=== PATIENT | male | born 1970 | race Caucasian/White ===

== ENCOUNTER → 2021-01-28 00:37 | Outpatient (CLI) | payer BC, SELFPAY ==
[2021-01-28 21:20] LABS: SARS-CoV-2 RNA PCR Negative
== END ==
PROVIDERS: PCP Family Medicine; Visit Provider Internal Medicine Gastroenterology
DX: Z01.812 Encounter for preprocedural laboratory examination (principal); Z20.822 Contact with and (suspected) exposure to COVID-19
CPT/HCPCS: C9803; U0003; U0005

== ENCOUNTER 2021-01-31 01:22 | Day surgery (SDC) | payer BC, SELFPAY ==
[2021-01-12 13:02] VITALS: BMI 24.1
[2021-01-31 07:42] VITALS: BP 147/91; PULSE 70; RESP 18; TEMP 36.6; O2SAT 100; BMI 24.3
[2021-01-31] MEDS: LACTATED RINGERS 1,000 ML 150 ML IV CONT (07:51)
--- NOTE | 2021-01-31 08:00 | WPDGICN ---
Assessment and Plan Assessment and plan (1) Encounter for screening for malignant neoplasm of colon: Code(s): Z12.11 - Encounter for screening for malignant neoplasm of colon Status: Acute Assessment and Plan: Patient presents for screening colonoscopy reports his father had a colon polyp in the past. Further recommendations on follow-up will be given after endoscopy. GI Consult Note Consult date/time: 01/31/21 08:00 HPI: Warren Draper is a 50 year old male presents for screening colonoscopy. Patient reports that his current weight appetite bowel movements are normal. Patient denies abdominal pain. He has had no bleeding. Family history is significant his father had colon polyps. Review of Systems Review of Systems: All systems reviewed & are unremarkable except as noted in HPI and below PMFSH Past Medical History Medical History (Updated 08/19/20 @ 17:00 by Zoraida Byrd NP) Family history of malignant neoplasm of prostate (03/04/19) Posterior pain of left hip RLS (restless legs syndrome) Family History Family History Other Family history of Parkinson's disease Family history of multiple sclerosis Social History Social History (Updated 09/17/19 @ 15:49 by Kayleigh Hickey CMA) Years smoked: 1 Smoking status: Former smoker Tobacco type: cigarettes Second hand tobacco smoke exposure: No Smoking end date: 07/22/86 Alcohol intake: never Alcohol use details: SINCE 5 YEARS AGO. Substance use: never Substance use type: does not use Gender identity (if verbalized by the patient): Male Spiritual care concerns: No Agree to blood products: Yes Meds Home Medications and Allergies Home Medications Medication Instructions Recorded Confirmed Type pramipexole 0.5 mg tablet See Rx Instructions .ROUTE 01/18/21 Rx .COMPLEX #90 tablet tramadol 50 mg tablet 50 mg PO Q8H PRN #90 tablet 01/18/21 Rx Allergies Allergy/AdvReac Type Severity Reaction Status Date / Time No Known Drug Allergies Allergy Unknown Verified 01/31/21 07:41 NKDA, NKFA Allergy Unknown UNKNOWN Uncoded 01/31/21 07:41 Vital Signs Vital Signs - 24 hr 01/31/21 07:42 Temperature 97.8 F Pulse Rate 70 Respiratory Rate 18 Blood Pressure 147/91 H Pulse Oximetry 100 Exam Narrative: Exam Narrative: physical exam reveals patient be alert. Vital signs stable. HEENT exam is unremarkable. Patient is anicteric. Lungs are clear to auscultation and percussion. Heart is without murmur or extra sounds. Abdominal exam bowel sounds are present soft nontender with no organomegaly. Digital external rectal exam is normal.
--- NOTE | 2021-01-31 08:12 | WPDANESEPPF ---
Anes - Initial Pre Proc Eval Procedure: Operation Date: 01/31/21 09:00 Proposed Procedures p Screening Colonoscopy - Tex Arzate MD Date/Time: 01/31/21 08:12 Surgeon: Tex Arzate MD Pre Op Diagnosis: neoplasm screening Patient Data Age: 50 Gender: M Height: 1.73 m Weight: 72.7 kg Last Vital Signs Temp 36.6 C 01/31/21 07:42 Pulse 70 01/31/21 07:42 Resp 18 01/31/21 07:42 BP 147/91 H 01/31/21 07:42 Pulse Ox 100 01/31/21 07:42 Allergies Allergy/AdvReac Type Severity Reaction Status Date / Time No Known Drug Allergies Allergy Unknown Verified 01/31/21 07:41 NKDA, NKFA Allergy Unknown UNKNOWN Uncoded 01/31/21 07:41 Home Medications Medication Instructions Recorded Confirmed Type pramipexole 0.5 mg tablet See Rx Instructions .ROUTE 01/18/21 Rx .COMPLEX #90 tablet tramadol 50 mg tablet 50 mg PO Q8H PRN #90 tablet 01/18/21 Rx Patient hx anesthesia problems: none Family hx anesthesia problems: none PMFSH Past Medical History Medical History (Updated 08/19/20 @ 17:00 by Zoraida Byrd NP) Family history of malignant neoplasm of prostate (03/04/19) Posterior pain of left hip RLS (restless legs syndrome) Family History Family History Other Family history of Parkinson's disease Family history of multiple sclerosis Social History Social History (Updated 09/17/19 @ 15:49 by Kayleigh Hickey CMA) Years smoked: 1 Smoking status: Former smoker Tobacco type: cigarettes Second hand tobacco smoke exposure: No Smoking end date: 07/22/86 Alcohol intake: never Alcohol use details: SINCE 5 YEARS AGO. Substance use: never Substance use type: does not use Gender identity (if verbalized by the patient): Male Spiritual care concerns: No Agree to blood products: Yes Anes - Eval Final PreProcedure Day of Procedure 01/31/21 08:12 Patient weight: normal Heart: regular rate and rhythm Lungs: clear to auscultation and normal air movement Airway: Mallampati scale class II Neurological: alert and oriented Last oral intake: >/= 8 hours ASA classification: II Emergent: no Anesthetic plan: proceed Anesthesia type and monitoring: general GIVS and standard monitoring Informed Consent: The patient's anesthetic plan and its attendant risks and benefits were discussed with the patient/family/POA. Questions were solicited and answers provided to the satisfaction of the patient/family/POA.
[2021-01-31 09:24] VITALS: BP 106/74; PULSE 64; RESP 16; O2SAT 96
[2021-01-31 09:34] VITALS: BP 116/79; PULSE 69; RESP 21; O2SAT 100
[2021-01-31 09:44] VITALS: BP 122/74; PULSE 63; RESP 18; O2SAT 100
== END 2021-01-31 09:54 | disposition home or self-care (01) ==
PROVIDERS: PCP Family Medicine; Visit Provider Internal Medicine Gastroenterology
PROC: 0DJD8ZZ Inspection of Lower Intestinal Tract, Via Natural or Artificial Opening Endoscopic (ICD-10-PCS; CPT 45378; principal; 2021-01-31 09:00)
DX: Z12.11 Encounter for screening for malignant neoplasm of colon (principal); G25.81 Restless legs syndrome; Z87.891 Personal history of nicotine dependence; Z83.71 Family history of colonic polyps; K64.8 Other hemorrhoids
CPT/HCPCS: 45378; J2704; J7120

== ENCOUNTER 2023-01-28 13:25 | Outpatient (CLI) | payer BC, SELFPAY ==
[2023-01-28 18:53] LABS: Basophils Absolute Auto 0.1 K/mm3 (0.0-0.1); Basophils Percent Auto 0.8 % (0.2-1.2); Eosinophils Percent Auto 0.7 % (0-4.4); Hematocrit 49.2 % (42.0-52.0); Immature Granulocyte Absolute 0.01 K/mm3 (0.00-0.031); Immature Granulocyte Percent A 0.2 % (0-0.5); Lymphocytes Absolute Auto 1.33 K/mm3 (0.9-3.2); Lymphocytes Percent Auto 22.2 % (18.3-44.2); Mean Corpuscular HGB Conc 32.5 g/dl (32-36); Mean Corpuscular Hemoglobin 28.6 pg (26-34); Mean Platelet Volume 11.5 fl (7.4-10.4); Monocytes Absolute Auto 0.5 K/mm3 (0.1-0.6); Monocytes Percent Auto 7.7 % (2.6-8.5); Neutrophils Absolute Auto 4.1 K/mm3 (1.3-6.7); Neutrophils Percent Auto 68.4 % (45.5-73.1); Platelet Count Result 186 k/mm3 (150-375); Red Blood Count 5.59 M/mm3 (4.6-6.20); Red Cell Distribution Width 13.4 % (11.5-14.5)
[2023-01-28 19:26] LABS: Alanine Aminotransferase 26 U/L (6-50); Albumin Level 4.5 g/dL (3.5-5.1); Alkaline Phosphatase 47 U/L (38-126); Anion Gap 3 mmol/L (8-16); Aspartate Amino Transferase 43 U/L (17-59); Bilirubin,Total 1.6 mg/dL (0.2-1.3); Blood Urea Nitrogen 21 mg/dL (9-20); Calcium 9.3 mg/dL (8.4-10.2); Carbon Dioxide 32 mmol/L (22-30); Chloride 101 mmol/L (98-107); Cholesterol 224 mg/dL (0-200); Estimated Glomerular Filt Rate > 60; Glucose 103 mg/dL (65-110); HDL Direct 53 mg/dL; Potassium 4.3 mmol/L (3.4-5.0); Sodium 136 mmol/L (137-145); Triglycerides 148 mg/dL (<150)
[2023-01-28 19:33] LABS: LDL Cholesterol Direct 113 mg/dL
[2023-01-28 19:50] LABS: Thyroid Stimulating Hormone 0.993 uIU/mL (0.465-4.680)
[2023-01-31 21:29] LABS: PSA, Free 0.44 ng/mL; PSA, Total 0.8 ng/mL (<=4.0)
== END 2023-01-28 13:26 | disposition home or self-care (01) ==
LOC: ANHGOSHLAB 13:27
PROVIDERS: PCP Family Medicine; Visit Provider Nurse Practitioner Family
DX: E78.2 Mixed hyperlipidemia (principal); I10 Essential (primary) hypertension; R13.10 Dysphagia, unspecified; Z12.5 Encounter for screening for malignant neoplasm of prostate
CPT/HCPCS: 36415; 80053; 80061; 84153; 84154; 84443; 85025

== ENCOUNTER → 2023-01-28 13:51 | Outpatient (CLI) | payer BC, SELFPAY ==
--- NOTE | ~2023-01-28 | US_ITS ---
EXAMINATION: US thyroid DATE: 01/28/2023 14:04 INDICATION: Dysphagia, unspecified. TECHNIQUE: Multiple ultrasound images of the thyroid were obtained. COMPARISON: None. FINDINGS: The right thyroid lobe measures 4.3 x 1.4 x 1.6 cm. The left thyroid lobe measures 4.0 x 1.3 x 1.6 c m. There are 2 mm and 3 mm nodules in the thyroid. IMPRESSION: 1. Small thyroid nodules, likely not clinically significant. No follow-up is needed. Reviewed, dictated and finalized at location E. IMPRESSION: 1. Small thyroid nodules, likely not clinically significant. No follow-up is ne eded.
== END ==
PROVIDERS: PCP Family Medicine; Visit Provider Nurse Practitioner Family
DX: R13.10 Dysphagia, unspecified (principal); E04.2 Nontoxic multinodular goiter
CPT/HCPCS: 76536

== ENCOUNTER 2024-03-02 10:13 | Outpatient (CLI) | payer BC, SELFPAY ==
[2024-03-02 14:45] LABS: Basophils Percent Auto 0.5 % (0.2-1.2); Eosinophils Absolute Auto 0.1 K/mm3 (0-0.3); Eosinophils Percent Auto 0.8 % (0-4.4); Hematocrit 47.7 % (42.0-52.0); Hemoglobin 15.7 g/dL (14.0-18.0); Immature Granulocyte Absolute 0.01 K/mm3 (0.00-0.031); Immature Granulocyte Percent A 0.2 % (0-0.5); Lymphocytes Absolute Auto 1.48 K/mm3 (0.9-3.2); Lymphocytes Percent Auto 24.8 % (18.3-44.2); Mean Corpuscular HGB Conc 32.9 g/dl (32-36); Mean Corpuscular Hemoglobin 28.9 pg (26-34); Mean Corpuscular Volume 87.8 fl (80-100); Mean Platelet Volume 11.8 fl (7.4-10.4); Monocytes Absolute Auto 0.5 K/mm3 (0.1-0.6); Neutrophils Absolute Auto 3.9 K/mm3 (1.3-6.7); Neutrophils Percent Auto 64.7 % (45.5-73.1); Platelet Count Result 185 k/mm3 (150-375); Red Blood Count 5.43 M/mm3 (4.6-6.20); Red Cell Distribution Width 13.2 % (11.5-14.5)
[2024-03-02 15:29] LABS: Vitamin D 25 Hydroxy 79.8 ng/mL
[2024-03-02 16:36] LABS: Alanine Aminotransferase 27 U/L (6-50); Albumin Level 4.5 g/dL (3.5-5.1); Alkaline Phosphatase 48 U/L (38-126); Anion Gap 7 mmol/L (4-12); Aspartate Amino Transferase 53 U/L (17-59); Bilirubin,Total 1.8 mg/dL (0.2-1.3); Blood Urea Nitrogen 16 mg/dL (9-20); Calcium 9.1 mg/dL (8.4-10.2); Carbon Dioxide 31 mmol/L (22-30); Chloride 101 mmol/L (98-107); Cholesterol 184 mg/dL (0-200); Estimated Glomerular Filt Rate > 60; Glucose 92 mg/dL (65-110); HDL Direct 46 mg/dL; Potassium 4.3 mmol/L (3.4-5.0); Sodium 139 mmol/L (137-145); Triglycerides 118 mg/dL (<150)
[2024-03-02 16:48] LABS: LDL Cholesterol Direct 101 mg/dL
[2024-03-02 22:16] LABS: Hemoglobin A1C 5.7 % (<5.7)
== END 2024-03-02 10:14 | disposition home or self-care (01) ==
LOC: ANHGOSHLAB 10:13
PROVIDERS: PCP Family Medicine; Visit Provider Family Medicine
DX: Z00.00 Encounter for general adult medical examination without abnormal findings (principal); R73.03 Prediabetes; E78.2 Mixed hyperlipidemia; I10 Essential (primary) hypertension; Z12.5 Encounter for screening for malignant neoplasm of prostate; Z13.29 Encounter for screening for other suspected endocrine disorder; E53.8 Deficiency of other specified B group vitamins; E55.9 Vitamin D deficiency, unspecified
CPT/HCPCS: 36415; 80053; 80061; 82306; 82607; 83036; 84153; 84443; 85025; G0103

== ENCOUNTER 2024-08-07 00:20 | Day surgery (SDC) | payer BC, SELFPAY ==
[2024-08-04 15:38] VITALS: BMI 22.8
[2024-08-07 10:12] VITALS: BP 129/85; PULSE 71; RESP 16; TEMP 36.2; O2SAT 99; BMI 22.8
[2024-08-07] MEDS: LACTATED RINGERS 1,000 ML 150 ML IV CONT (10:19)
--- NOTE | 2024-08-07 10:24 | P.PNAN_ITS ---
Anes - Initial Pre Proc Eval Procedure: Operation Date: 08/07/24 11:30 Proposed Procedures p Esophagogastroduodenoscopy - Adalberto Alvarez MD Date/Time: 08/07/24 10:24 Surgeon: Adalberto Alvarez MD Pre Op Diagnosis: Dysphagia Patient Data Age: 54 Gender: M Height: 1.73 m Weight: 68.1 kg Last Vital Signs Temp 36.2 C L 08/07/24 10:12 Pulse 71 08/07/24 10:12 Resp 16 08/07/24 10:12 BP 129/85 08/07/24 10:12 Pulse Ox 99 08/07/24 10:12 O2 Del Method Room Air 08/07/24 10:12 Allergies Allergy/AdvReac Type Severity Reaction Status Date / Time No Known Drug Allergies Allergy Unknown Verified 08/07/24 10:11 Home Medications ?Medication ?Instructions ?Recorded ?Confirmed ?Type losartan 50 mg tablet 50 mg PO DAILY #90 tabs 03/02/24 08/04/24 Rx tramadol 50 mg tablet 50 mg PO Q8H PRN pain #90 tabs 03/02/24 08/04/24 Rx pramipexole 0.5 mg tablet 0.5 mg PO QHS #90 tabs 03/27/24 08/04/24 Rx Patient hx anesthesia problems: none Family hx anesthesia problems: none Results Review: All pre-operative results and documents have been reviewed as part of the pre- operative evaluation. [facility] Past Medical History Medical History Hypertension Mixed hyperlipidemia Family history of malignant neoplasm of prostate (03/04/19) Posterior pain of left hip RLS (restless legs syndrome) Family History Family History Other Family history of Parkinson's disease Family history of multiple sclerosis Social History Social History (Updated 08/07/24 @ 10:24 by Fred Perkins MD) Years smoked: 1 Smoking status: Former smoker Tobacco type: cigarettes Second hand tobacco smoke exposure: No Smoking end date: 07/22/86 Alcohol intake: never Alcohol use details: SINCE 5 YEARS AGO. Substance use: never Substance use type: does not use Lack of Transportation: No Lack of Food: Never True Current Housing: I Have Housing Concerned About Future Housing: No Difficulty Paying Gas/Electric Bills: No Difficulty Paying for Meds: No Currently Unemployed: No Education: Trade/Vocational Certificate Difficulty w/ Childcare or Family Care: No Living arrangements: alone Occupation/Education: occupation Gender identity (if verbalized by the patient): Male Spiritual care concerns: No Agree to blood products: Yes Anes - Eval Final PreProcedure Day of Procedure 08/07/24 10:24 Patient weight: normal Heart: regular rate and rhythm Lungs: clear to auscultation Airway: Mallampati scale class II Neurological: alert and oriented Last oral intake: >/= 8 hours ASA classification: II Emergent: no Anesthetic plan: proceed Anesthesia type and monitoring: general GIVS and standard monitoring Results Review: All pre-operative results and documents have been reviewed as part of the pre- operative evaluation. Informed Consent: The patient's anesthetic plan and its attendant risks and benefits were discussed with the patient/family/POA. Questions were solicited and answers provided to the satisfaction of the patient/family/POA.
--- NOTE | 2024-08-07 10:27 | PM.HPGS ---
History of Present Illness History of Present Illness Consent: Risks, benefits, and alternatives have been discussed and questions answered. Patient agrees to proceed with procedure. Chief complaint: Dysphagia Narrative: Warren Draper is a 54 year old male with intermittent dysphagia but recently has improved, never had egd, using tums but only occasionally, no ppi Review of Systems Review of Systems: All systems reviewed & are unremarkable except as noted in HPI and below PMFSH Past Medical History Medical History Hypertension Mixed hyperlipidemia Family history of malignant neoplasm of prostate (03/04/19) Posterior pain of left hip RLS (restless legs syndrome) Family History Family History Other Family history of Parkinson's disease Family history of multiple sclerosis Social History Social History (Updated 08/07/24 @ 10:24 by Fred Perkins MD) Years smoked: 1 Smoking status: Former smoker Tobacco type: cigarettes Second hand tobacco smoke exposure: No Smoking end date: 07/22/86 Alcohol intake: never Alcohol use details: SINCE 5 YEARS AGO. Substance use: never Substance use type: does not use Lack of Transportation: No Lack of Food: Never True Current Housing: I Have Housing Concerned About Future Housing: No Difficulty Paying Gas/Electric Bills: No Difficulty Paying for Meds: No Currently Unemployed: No Education: Trade/Vocational Certificate Difficulty w/ Childcare or Family Care: No Living arrangements: alone Occupation/Education: occupation Gender identity (if verbalized by the patient): Male Spiritual care concerns: No Agree to blood products: Yes Meds Home Medications and Allergies Home Medications ?Medication ?Instructions ?Recorded ?Confirmed ?Type losartan 50 mg tablet 50 mg PO DAILY #90 tabs 03/02/24 08/04/24 Rx tramadol 50 mg tablet 50 mg PO Q8H PRN pain #90 tabs 03/02/24 08/04/24 Rx pramipexole 0.5 mg tablet 0.5 mg PO QHS #90 tabs 03/27/24 08/04/24 Rx Allergies Allergy/AdvReac Type Severity Reaction Status Date / Time No Known Drug Allergies Allergy Unknown Verified 08/07/24 10:11 Vital Signs Vital Signs - 24 hr 08/07/24 10:12 Temperature 97.2 F L Pulse Rate 71 Respiratory Rate 16 Blood Pressure 129/85 Pulse Oximetry 99 Oxygen Delivery Room Air Exam Const: General: comfortable and no acute distress HENMT: Face/Nose/Sinus: Normal nares present Eyes: General: appearance normal, both eyes and all related structures Neck: Neck: no JVD Resp: Auscultation: clear to auscultation bilaterally Cardio: Rate: regular rate Rhythm: regular rhythm GI: Inspection: non-distended GI Palp: Yes Soft to palpation Skin: General skin exam: normal color Neuro: General: gait normal Speech: normal speech Extrem: General: normal to inspection Psych: Mental Status: mental status grossly normal Assessment and Plan Assessment and plan (1) Trouble swallowing: Qualifiers: Dysphagia type: unspecified Qualified Code(s): R13.10 - Dysphagia, unspecified Code(s): R13.10 - Dysphagia, unspecified Status: Acute Assessment and Plan: egd with bx
[2024-08-07 10:38] VITALS: BP 121/81; PULSE 76; RESP 20; O2SAT 97
[2024-08-07 10:48] VITALS: BP 123/90; PULSE 69; RESP 22; O2SAT 98
[2024-08-07 10:58] VITALS: BP 117/74; PULSE 75; RESP 22; O2SAT 99
== END 2024-08-07 11:05 | disposition home or self-care (01) ==
PROVIDERS: PCP Family Medicine; Referring Provider Nurse Practitioner Family; Visit Provider Internal Medicine Gastroenterology
PROC: 0DJ08ZZ Inspection of Upper Intestinal Tract, Via Natural or Artificial Opening Endoscopic (ICD-10-PCS; CPT 43239; principal; 2024-08-07 11:30)
DX: K21.00 Gastro-esophageal reflux disease with esophagitis, without bleeding (principal); K29.50 Unspecified chronic gastritis without bleeding; I10 Essential (primary) hypertension; E78.2 Mixed hyperlipidemia; G25.81 Restless legs syndrome; Z79.891 Long term (current) use of opiate analgesic; Z87.891 Personal history of nicotine dependence; Z80.42 Family history of malignant neoplasm of prostate
CPT/HCPCS: 43239; 88305; J2704; J7120

== ENCOUNTER 2024-09-16 15:12 | Outpatient (CLI) | payer BC, SELFPAY ==
--- OUTSIDE RECORDS SUMMARY | 2024-09-16 17:35 | XMS_ITS | Clinical Summary ---
Author Organization [facility] Address [address] [place] [id number] Care Team Providers Care Etch Operator Semiconductor Wafers Name Role Phone Orville Driscoll MD Primary Care Provider Allergies No known active allergies Medications traMADol (ULTRAM) 50 mg tablet 08/25/2018 Active pramipexole (MIRAPEX) 0.5 mg tablet 02/15/2020 Active Active Problems Problem Noted Date Diagnosed Date Pain in pelvis 09/08/2012 Lumbago 05/23/2012 Arthralgia of hip 03/21/2012 Surgical History Surgery Date Site/Laterality Comments APPENDECTOMY VASECTOMY FL FLUORO GUIDED INJECTION HIP LEFT 06/23/2019 Left HERNIA REPAIR Medical History Medical History Date Comments Migraines Restless leg syndrome Family History Medical History Relation Name Comments Hypertension Father Seizures Mother Relation Name Status Comments Father Alive Mother Alive Social History Tobacco Use Types Packs/Day Years Used Date Smoking Tobacco: Former Cigarettes Q uit: 1988 Smokeless Tobacco: Never Alcohol Use Standard Drinks/Week Comments Not Currently 0 (1 standard drink = 0.6 oz pur e alcohol) Sex and Gender Information Value Date Recorded Sex Assigned at Not on file Legal Sex Male 8:38 PM CONTACT CENTER CONSULTANT Gender Identity Not on file Sexual Orientation Not on file 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 Not on file Not on file Obstetrics History Last Filed Vital Signs Vital Sign Reading Time Taken Comments Blood Pressure 126/89 06/23/2019 9:00 AM CONTACT CENTER CONSULTANT Pulse 57 06/23/2019 9:00 AM CONTACT CENTER CONSULTANT Temperature - - Respiratory Rate 18 06/23/2019 9:00 AM CONTACT CENTER CONSULTANT Oxygen Saturation 100% 06/23/2019 9:00 AM CONTACT CENTER CONSULTANT Inhaled Oxygen Concentration - - Weight 69.6 kg (153 lb 6.4 oz) 03/04/2020 11:43 AM CDT Height 170.2 cm (5' 7 ) 03/04/2020 11:43 AM CDT Body Mass Index 24.03 03/04/2020 11:43 AM CDT Plan of Treatment Not on file Insurance ANTHEM ACCESS ANTHEM ACCESS Member Subscriber Plan / Payer (Ef fective 2010-) Name:Yazmin Draper Relation to Subscriber:Self Name:ERINYAZMIN Tara Payer ID:[id number] (NAIC) Type:[employer] Address: [address] ACCESS OOS Care Teams Etch Operator Semiconductor Wafers Relationship Specialty Start Date End Date Orville Driscoll MD PCP - General Family Practice 09/11/18
--- OUTSIDE RECORDS SUMMARY | 2024-09-16 17:35 | XMS_ITS | Referral Summary ---
Author Organization [facility] Address [facility] [place] [address] Care Team Providers Care Slurry Man Name Role Phone Orville Driscoll MD Primary Care Provider Allergies No known active allergies Medications traMADol (ULTRAM) 50 mg tablet 08/25/2018 Active pramipexole (MIRAPEX) 0.5 mg tablet 02/15/2020 Active Active Problems Problem Noted Date Diagnosed Date Pain in pelvis 09/08/2012 Lumbago 05/23/2012 Arthralgia of hip 03/21/2012 Social History Tobacco Use Types Packs/Day Years Used Date Smoking Tobacco: Former Cigarettes Q uit: 1988 Smokeless Tobacco: Never Alcohol Use Standard Drinks/Week Comments Not Currently 0 (1 standard drink = 0.6 oz pur e alcohol) Sex and Gender Information Value Date Recorded Sex Assigned at Not on file Legal Sex Male 8:38 PM CAGE SHIFT MANAGER Gender Identity Not on file Sexual Orientation Not on file 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 Not on file Not on file Last Filed Vital Signs Vital Sign Reading Time Taken Comments Blood Pressure 126/89 06/23/2019 9:00 AM CAGE SHIFT MANAGER Pulse 57 06/23/2019 9:00 AM CAGE SHIFT MANAGER Temperature - - Respiratory Rate 18 06/23/2019 9:00 AM CAGE SHIFT MANAGER Oxygen Saturation 100% 06/23/2019 9:00 AM CAGE SHIFT MANAGER Inhaled Oxygen Concentration - - Weight 69.6 kg (153 lb 6.4 oz) 03/04/2020 11:43 AM CDT Height 170.2 cm (5' 7 ) 03/04/2020 11:43 AM CDT Body Mass Index 24.03 03/04/2020 11:43 AM CDT Plan of Treatment Not on file Insurance ANTHEM ACCESS BLUE ACCESS OOS Care Teams Slurry Man Relationship Specialty Start Date End Date Orville Driscoll MD PCP - General Family Practice 09/11/18
--- OUTSIDE RECORDS SUMMARY | 2024-09-16 17:35 | XMS_ITS | Encounter Summary ---
Author Organization [facility] Address [address] [place] [address] Phone Care Team Providers Care Inspector Conveyor Line Name Role Phone Orville Driscoll MD Primary Care Provider Encounter Details Date Type Department Care Team (Late st Contact Info) Description 04/11/2020 Orders Only [facility] PMR [phone] Scanning, Provider Social History Tobacco Use Types Packs/Day Years Used Date Smoking Tobacco: Former Cigarettes Q uit: 1988 Smokeless Tobacco: Never Alcohol Use Standard Drinks/Week Comments Not Currently 0 (1 standard drink = 0.6 oz pur e alcohol) Sex and Gender Information Value Date Recorded Sex Assigned at Not on file Legal Sex Male 8:38 PM BINDERY TECHNICIAN Gender Identity Not on file Sexual Orientation Not on file 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 Not on file Not on file documented as of this encounter Plan of Treatment Not on file documented as of this encounter Procedures Procedure Name Priority Date/Time Associated Diagnosis Comments SCAN - RADIOLOGY/IMAGING 04/11/2020 documented in this encounter Results * SCAN - RADIOLOGY/IMAGING (04/11/2020) Anatomical Region Laterality Modality Other us Provider Scanning Final Result documented in this encounter Visit Diagnoses Not on filedocumented in this encounter Care Teams Inspector Conveyor Line Relationship Specialty Start Date End Date Orville Driscoll MD PCP - General Family Practice 09/11/18 documented as of this encounter
[2024-09-16 20:08] LABS: Hemoglobin A1C 5.3 % (<5.7)
== END 2024-09-16 15:13 | disposition home or self-care (01) ==
LOC: ANHGOSHLAB 15:13
PROVIDERS: PCP Family Medicine; Visit Provider Family Medicine
DX: R73.03 Prediabetes (principal); G25.81 Restless legs syndrome
CPT/HCPCS: 36415; 82728; 83036

== ENCOUNTER 2025-03-11 15:47 | Outpatient (CLI) | payer BC, SELFPAY ==
--- OUTSIDE RECORDS SUMMARY | 2025-03-11 15:50 | XMS_ITS | Clinical Summary ---
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 Not on file Not on file Obstetrics History Last Filed Vital Signs Vital Sign Reading Time Taken Comments Blood Pressure 126/89 06/23/2019 9:00 AM SHIRRER Pulse 57 06/23/2019 9:00 AM SHIRRER Temperature - - Respiratory Rate 18 06/23/2019 9:00 AM SHIRRER Oxygen Saturation 100% 06/23/2019 9:00 AM SHIRRER Inhaled Oxygen Concentration - - Weight 69.6 kg (153 lb 6.4 oz) 03/04/2020 11:43 AM CDT Height 170.2 cm (5' 7) 03/04/2020 11:43 AM CDT Body Mass Index 24.03 03/04/2020 11:43 AM CDT Plan of Treatment Not on file Insurance ANTHEM ACCESS ANTHEM ACCESS Member Subscriber Plan / Payer (Ef fective 2010-) Name:Yazmin Draper Relation to Subscriber:Self Name:ERINYAZMIN Tara Payer ID:[id number] (NAIC) Type:[employer] Address: [address] ACCESS OOS Care Teams Monument Setter Helper Relationship Specialty Start Date End Date Orville Driscoll MD PCP - General Family Practice 09/11/18
--- OUTSIDE RECORDS SUMMARY | 2025-03-11 15:50 | XMS_ITS | Encounter Summary ---
Author Organization [facility] Address [address] [place] [address] Phone Care Team Providers Care Tableau Administrator Name Role Phone Orville Driscoll MD Primary Care Provider Encounter Details Date Type Department Care Team (Late st Contact Info) Description 04/11/2020 Orders Only [facility] PMR [phone] Scanning, Provider Social History Tobacco Use Types Packs/Day Years Used Date Smoking Tobacco: Former Cigarettes Q uit: 1988 Smokeless Tobacco: Never Alcohol Use Standard Drinks/Week Comments Not Currently 0 (1 standard drink = 0.6 oz pur e alcohol) Sex and Gender Information Value Date Recorded Sex Assigned at Not on file Legal Sex Male 8:38 PM BAR POINTER Gender Identity Not on file Sexual Orientation Not on file 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
[2025-03-11 16:22] LABS: Hematocrit 47.5 % (42.0-52.0); Hemoglobin 15.8 g/dL (14.0-18.0); Immature Granulocyte Percent A 0.1 % (0-0.5); Lymphocytes Absolute Auto 1.68 K/mm3 (0.9-3.2); Mean Corpuscular HGB Conc 33.3 g/dl (32-36); Mean Corpuscular Hemoglobin 28.6 pg (26-34); Mean Corpuscular Volume 85.9 fl (80-100); Nucleated Red Blood Cells Absolute Auto 0.000 K/mm3 (0.0-0.012); Nucleated Red Blood Cells Perc 0.0 % (0.0-0.2); Platelet Count Result 180 k/mm3 (150-375); Red Blood Count 5.53 M/mm3 (4.6-6.20); White Blood Count 7.1 K/mm3 (4.5-10.0)
[2025-03-11 16:38] LABS: Alanine Aminotransferase 42 U/L (6-50); Albumin Level 4.4 g/dL (3.5-5.1); Alkaline Phosphatase 45 U/L (38-126); Anion Gap 5 mmol/L (4-12); Aspartate Amino Transferase 43 U/L (17-59); Bilirubin,Total 1.7 mg/dL (0.2-1.3); Blood Urea Nitrogen 16 mg/dL (9-20); Calcium 9.6 mg/dL (8.4-10.2); Carbon Dioxide 29 mmol/L (22-30); Chloride 103 mmol/L (98-107); Cholesterol 190 mg/dL (0-200); Estimated Glomerular Filt Rate > 60; Glucose 93 mg/dL (65-110); HDL Direct 50 mg/dL; Potassium 4.9 mmol/L (3.4-5.0); Sodium 137 mmol/L (137-145); Total Protein 7.1 g/dL (6.3-8.2); Triglycerides 134 mg/dL (<150)
[2025-03-11 17:14] LABS: Prostate Specific Antigen 1.0 ng/mL (< OR = 4.0)
[2025-03-11 17:38] LABS: Vitamin B12 > 1000.0 pg/mL (239-931)
[2025-03-11 17:49] LABS: Thyroid Stimulating Hormone Reflex 1.240 uIU/mL (0.465-4.68)
[2025-03-11 18:00] LABS: Hemoglobin A1C 5.6 % (<5.7)
== END 2025-03-11 15:48 | disposition home or self-care (01) ==
LOC: ANHGOSHLAB 15:47
PROVIDERS: PCP Family Medicine; Visit Provider Family Medicine
DX: Z00.00 Encounter for general adult medical examination without abnormal findings (principal); Z12.5 Encounter for screening for malignant neoplasm of prostate; R73.03 Prediabetes; E78.5 Hyperlipidemia, unspecified; E53.8 Deficiency of other specified B group vitamins; E55.9 Vitamin D deficiency, unspecified; G25.81 Restless legs syndrome; I10 Essential (primary) hypertension
CPT/HCPCS: 36415; 80053; 80061; 82306; 82607; 83036; 84153; 84443; 85025; G0103